=== PATIENT | male | born 1960 ===

== ENCOUNTER 2021-07-06 06:24 | Day surgery (SDC) | payer BC, OTHER ==
[~2021-07-06] VITALS: Ht 167.6 cm; Wt 73.0 kg
[~2021-07-06 06:24] MED LIST: BP MED; CYCL10 PO; ELET40TA; MECL12.5; MECL25 PO; MIGRAINE MED; NAPR500 PO; OMEP20ER PO; OXYACE5T; OXYACE5T PO; PROM25 PO; RXOXYACE PO; SULTRISS
--- NOTE | 2021-07-06 07:12 | NUR ---
07/06/21 0712 Ladonna Ross CALL LIGHT WITHIN REACH
== END 2021-07-06 08:42 | disposition home or self-care (01) ==
LOC: ORSCSDS 06:24
PROVIDERS: Orthopaedic Surgery
PROC: 01N50ZZ Release Median Nerve, Open Approach (ICD-10-PCS; principal; 2021-07-06 07:30)
DX: G56.03 Carpal tunnel syndrome, bilateral upper limbs (principal); I10 Essential (primary) hypertension; J44.9 Chronic obstructive pulmonary disease, unspecified; F17.210 Nicotine dependence, cigarettes, uncomplicated; K21.9 Gastro-esophageal reflux disease without esophagitis; Z79.899 Other long term (current) drug therapy
CPT/HCPCS: J0690; J1100; J1885; J2250; J2405; J2704; J2795; J3010; J7120

== ENCOUNTER → 2021-07-08 | Outpatient (CLI) | payer BC, OTHER | END | disposition home or self-care (01) | LOC: LAB 14:55 → LAB SHORT 14:55 | DX: Z48.01 Encounter for change or removal of surgical wound dressing (principal) | CPT/HCPCS: 87070; 87205 ==

== ENCOUNTER → 2022-10-23 | Outpatient (CLI) | payer BC, OTHER ==
[2022-10-23 17:30] LABS: Source, Urine Voided
[2022-10-23 18:58] LABS: Appearance, Urine Hazy (Clear); Bilirubin, Urine Neg (Neg); Blood, Urine 3+ (Neg); Color, Urine Yellow (P-Yellow); Glucose Qualitative, Urine Neg (Neg); Ketones, Urine 1+ (Neg); Leukocyte Esterase, Urine 1+ (Neg); Nitrite, Urine Neg (Neg); Protein, Urine 2+ (Neg); Urobilinogen, Urine 1+ (Normal)
[2022-10-23 19:16] LABS: Amorphous Light (0-Heavy); Mucus Light (0-Heavy)
[2022-10-23 19:25] LABS: Bacteria Many /hpf; Red Blood Cells, Urine 0-2 /hpf (0-2); Squamous Epithelial Cells Rare /hpf (Few); White Blood Cells, Urine 0-2 /hpf (0-5)
== END | disposition home or self-care (01) ==
LOC: LAB SHORT 15:30
PROVIDERS: Nurse Practitioner Family
DX: G89.4 Chronic pain syndrome (principal); R39.15 Urgency of urination; R31.9 Hematuria, unspecified
CPT/HCPCS: 81001; 87086